=== PATIENT | female | born 1965 ===

== ENCOUNTER 2019-11-24 10:38 | Day surgery (SDC) | payer OTHER ==
[~2019-11-24 10:38] MED LIST: COZAAR50 MG PO; GLYCOTROL CAPS1 EACH PO; LEVO-T25 MCG PO; METFORMIN HCL1000 M2 PO; NASAL MIST126 ML; OSTERA TABLET1 EACH PO; SOLIQUA 100 UNIT3 ML
== END 2019-11-24 19:45 | disposition home or self-care (01) ==
LOC: CIR.AMB 10:38 → ADM 11:15 → CIR.AMB 19:45
PROVIDERS: ATTEND Obstetrics & Gynecology
DX: N84.0 Polyp of corpus uteri (principal); N84.1 Polyp of cervix uteri